=== PATIENT | male | born 1950 | race Caucasian/White ===

== ENCOUNTER 2017-01-24 16:10 | Emergency (ER) | payer MEDICARE, OTHER ==
[2017-01-24 17:18] LABS: BASOPHIL 0.3 % (0-2); EOSINOPHIL 3.9 % (0-7); HCT 37.8 % (42.0-52.0); HGB 13.3 g/dl (13.2-18.0); LYMPHOCYTE 19.5 % (15-48); MCH 30.1 pg (25.0-31.0); MCHC 35.2 g/dL (32.0-36.0); MCV 85.5 fL (78.0-100.0); MONOCYTE 8.5 % (0-12); MPV 10.1 fL (6.0-9.5); NEUTROPHIL 67.8 % (41-80); PLT 165 K/uL (150-400); RBC 4.42 M/uL (4.70-6.00); RDW 13.3 % (11.5-14.0); WBC 6.1 K/uL (4.0-10.5)
[2017-01-24 17:25] LABS: POTASSIUM 3.7 mmol/L (3.5-5.1)
== END 2017-01-24 18:14 | disposition home or self-care (01) ==
LOC: FER 16:10
PROVIDERS: Emergency Medicine
DX: J44.1 Chronic obstructive pulmonary disease with (acute) exacerbation (principal); K21.9 Gastro-esophageal reflux disease without esophagitis; Z88.0 Allergy status to penicillin; Z88.5 Allergy status to narcotic agent; Z91.041 Radiographic dye allergy status; Z79.899 Other long term (current) drug therapy; Z87.891 Personal history of nicotine dependence
CPT/HCPCS: 36415; 71020; 80048; 85025; 93005; 94640; J2930